=== PATIENT | male | born 2000 | race Caucasian/White ===

== ENCOUNTER 2023-11-23 20:16 | Emergency (ER) | payer BC ==
[~2023-11-23] VITALS: Ht 175.3 cm; Wt 63.5 kg
[2023-11-23 20:37] VITALS: BP 122/78; TEMP 98
[2023-11-23 20:42] VITALS: O2SAT 99
== END 2023-11-23 20:43 | disposition home or self-care (01) ==
LOC: ER 20:18
DX: S01.01XD Laceration without foreign body of scalp, subsequent encounter (principal); Z48.02 Encounter for removal of sutures; X58.XXXD Exposure to other specified factors, subsequent encounter